=== PATIENT | female | born 1935 | race African-American/Black ===

== ENCOUNTER 2023-07-13 15:24 | Emergency (ER) | payer OTHER ==
[~2023-07-13] VITALS: Ht 180.3 cm; Wt 63.5 kg
[2023-07-13 16:11] VITALS: BP_SYST 145; PULSE 73; RESP 18; TEMP 97.5; O2SAT 97
== END 2023-07-13 17:17 | disposition left against medical advice (07) ==
LOC: SED 15:24
DX: S40.021D Contusion of right upper arm, subsequent encounter (principal); Z53.21 Procedure and treatment not carried out due to patient leaving prior to being seen by health care provider; X58.XXXD Exposure to other specified factors, subsequent encounter
CPT/HCPCS: 99281